=== PATIENT | male | born 1955 | race Caucasian/White ===

== ENCOUNTER 2020-03-01 11:26 | Day surgery (SDC) | payer BC ==
[~2020-03-01] VITALS: Ht 170.2 cm; Wt 80.0 kg
[~2020-03-01 11:26] MED LIST: CENTRUM SILVER1 TAB PO; COUMADIN4 MG PO; FERROUS SU325 MG/TAB PO; FOLIC ACID 40400 MCG PO; NORCO 325 MG-7.1 TAB PO; NORVASC 5MG5 MG/TAB PO; OMEGA-3 FISH1200 MG PO; RELAFEN 50500 MG/TAB PO; ROXICODONE 55 MG/TAB PO; VITAMIN C500 MG PO; ZESTRIL 10MG10 MG PO
[2020-03-01 12:23] VITALS: BP 134/87; PULSE 46; TEMP 98.1
[2020-03-01] MEDS ORDERED: NORVASC 5MG5 MG/TAB PO (12:56)
[2020-03-01] MEDS ORDERED: PRAVACHOL 40MG40 MG PO (12:56)
[2020-03-01] MEDS ORDERED: PRIL40 PO (12:57)
[2020-03-01 14:27] VITALS: TEMP 97.3
[2020-03-01 14:35] VITALS: BP 132/83; PULSE 46
--- NOTE | 2020-03-01 14:35 | NUR ---
Patient returns to room 4 per cart and is awake and alert. Temp 97.9 and room air sats 100%. IV fluids infusing. Denies pain or nausea. Given Iced tea to drink.
[2020-03-01 14:50] VITALS: BP 136/74; PULSE 41
--- NOTE | 2020-03-01 14:50 | NUR ---
Room air sats 95% and is drinking water.
[2020-03-01] MEDS ORDERED: PYRIDIUM 100MG100 MG PO (14:53)
[2020-03-01 15:05] VITALS: BP 135/77; PULSE 44
--- NOTE | 2020-03-01 15:05 | NUR ---
Eating toast and drinking water. Denies pain or nausea.
--- NOTE | 2020-03-01 15:07 | NUR ---
IV to INT and all fluids infused. Up to the bathroom and states that he only dribbled few drops of blood. Returns to room and continues to force fluids. Informed patient he would need to void prior to discharge.
--- NOTE | 2020-03-01 15:30 | NUR ---
Patient has continued to force water, tea, and Pepsi. Has been walking in the hallway. States that he does not have the urge to urinate or feel uncomfortable.
--- NOTE | 2020-03-01 16:00 | NUR ---
Has been in the bathroom x3 and no urine output. Bladder scan done and 297 noted. Patient states that he wants to go home. Will inform Dr. Pereyra.
--- NOTE | 2020-03-01 16:30 | NUR ---
Order was obtained that the patient maybe discharged without urinating and if he becomes distended or uncomfortable that he needs to return to the emergency room. Patient is agreeable to this. INT discontinued and dismissal instructions signed. Patient dismissed to home per private vehicle driven by spouse and taken to the front door per wheelchair.
== END 2020-03-01 16:30 | disposition home or self-care (01) ==
LOC: SDCO 11:26
DX: N21.0 Calculus in bladder (principal); I10 Essential (primary) hypertension; M16.11 Unilateral primary osteoarthritis, right hip; Z96.641 Presence of right artificial hip joint; E78.00 Pure hypercholesterolemia, unspecified; Z79.899 Other long term (current) drug therapy; Z88.0 Allergy status to penicillin
CPT/HCPCS: J0690; J1100; J1885; J2405; J2704; J3010; J7120